=== PATIENT | male | born 1970 | race Caucasian/White ===

== ENCOUNTER 2018-05-26 09:11 | Emergency (ER) | payer MEDICAID, SELFPAY ==
[2018-05-26 09:12] VITALS: BP 147/110; PULSE 106; RESP 18; TEMP 36.4; O2SAT 97; BMI 21.4
--- NOTE | 2018-05-26 09:21 | RAD_ITS ---
STUDY: X-RAY CHEST REASON FOR EXAM: Male, 47 years old. Choked on food. Nausea and vomiting. TECHNIQUE: Single AP portable view of the chest. COMPARISON: None. FINDINGS: EKG electrodes are seen. Increased markings are seen in the medial aspect of the right upper lobe. This may represent possible aspiration. Radiographic follow-up is recommended. There is no demonstrated pleural abnormality. Normal size heart. Normal mediastinum and eliot. Normal visualized pulmonary arteries. Normal visualized aortic arch and descending thoracic aorta. Normal visualized thoracic spine. Normal visualized ribs, clavicles, and shoulders. There is no demonstrated abnormality of the visualized soft tissue structures of the upper abdomen. RAD/Chest 1 View (Portable) IMPRESSION: Increased markings in the right upper lobe as described. Aspiration should be ruled out. Radiographic follow-up is recommended until clearing. Electronically Signed: Domo Mccormick MD at 11:51 EDT Tel [phone], Service support ,
--- NOTE | 2018-05-26 09:23 | RAD_ITS ---
STUDY: X-RAY - SOFT TISSUE NECK REASON FOR EXAM: Male, 47 years old. Possible foreign body. TECHNIQUE: AP and lateral view(s) of the neck were obtained. COMPARISON: None. FINDINGS: Normal visualized nasopharynx, oropharynx, hypopharynx. There is thickening of the epiglottis. The airway is patent. Normal visualized subglottic tracheal air column. Normal prevertebral soft tissue structures. Normal visualized osseous structures. There is no demonstrated radiopaque foreign body. There are atherosclerotic calcifications of the carotid arteries. RAD/Neck for Soft Tissue IMPRESSION: Thickened epiglottis. No radiopaque foreign body is seen. Electronically Signed: Domo Mccormick MD at 11:49 EDT Tel [phone], Service support ,
[2018-05-26] MEDS: Ondansetron 4 MG/2 ML Vial IV (10:21)
[2018-05-26] MEDS: 0.9% Normal Saline 1,000 ML 1000 ML IV (10:22)
[2018-05-26 10:23] LABS: Absolute Lymphocyte Count 1.78 X10^3/ul (0.83-4.51); Absolute Neutrophil Count 3.6 X10^3/uL (2.0-7.7); Basophil# 0.13 X10^3/uL; Basophil% 1.9 % (0-1); Eosinophil# 0.53 X10^3/uL; Eosinophils% 7.9 % (0-5); Hematocrit 40.7 % (40-54); Lymphocyte # 1.78 X10^3/ul (4.0); Lymphocyte % 26.4 % (19-41); Mean Corp Hgb Conc 34.4 g/gl (32-36); Mean Corpuscular Hgb 33.2 pg (27.0-32.0); Mean Corpuscular Volume 96.4 fL (80-94); Mean Platelet Vol. 8.5 fl (6.2-12.0); Monocyte# 0.68 X10^3/uL; Monocyte% 10.1 % (0-10); Neutrophil # 3.61 X10^3/uL (2.7-7.7); Neutrophil % 53.7 % (47-70); Platelet Count 414 K/mm3 (150-450); RBC Distribution Width CV 12.1 % (11.6-14.6); RBC Distribution Width SD 41.7 fl (35.1-43.9); Red Blood Count 4.22 M/mm3 (4.6-6.2); White Blood Count 6.7 K/mm3 (4.4-11.0)
[2018-05-26 10:24] LABS: POSITIVE COUNT NO; POSITIVE DIFFERENTIAL NO; POSITIVE MORPHOLOGY NO
[2018-05-26] MEDS: Glucagon 1 MG/ML Syringe IV (10:24)
[2018-05-26 10:39] LABS: AST(SGOT) 18 U/L (15-37); Alanine Aminotransfer ALT/SGPT 22 U/L (16-61); Alkaline Phosphatase 79 U/L (45-117); Anion Gap 11 (5-15); BUN 9 mg/dL (7-18); BUN/Creat Ratio 9.7 RATIO (10-20); Calcium,Total 8.8 mg/dL (8.5-10.1); Chloride 109 mmol/L (98-107); Creatinine, Serum 0.93 mg/dL (0.70-1.30); EST Glomerular Filtration Rate 93 mL/min (>60); Est Glom Filt Rate - Afr Amer 113 mL/min (>60); Estimated Creatinine Clearance 92.65 ml/min; Globulin 4.1 g/dL (2.2-4.2); Glucose 89 mg/dL (74-106); Potassium 3.5 mmol/L (3.5-5.1); Protein, Total 8.1 g/dL (6.4-8.2); Sodium Level 142 mmol/L (136-145)
[2018-05-26 10:51] VITALS: BP 153/71; PULSE 79; RESP 20; O2SAT 100
[2018-05-26 11:28] VITALS: BP 149/99; PULSE 86; RESP 15; O2SAT 100
--- NOTE | 2018-05-26 12:08 | ED.VISSUMM ---
- ER Visit Summary Date of Service: 05/26/18 Chief Complaint: Choking on a burrito History of Present Illness: The patient is a 47 M who presents with trouble swallowing after stating he choked on a burrito. He was eating a burrito and suddenly had difficulty swallowing it. He began vomiting and thought he got most of it out. He continues to feel like there is burrito in his mid throat. He has associated discomfort, nausea and vomiting. Denies any difficulty breathing. Complains of difficulty swallowing his secretions. Denies this happening before. No medical history. Physical Examination: Vital signs: afebrile, hypertensive and mildly tachycardic, no hypoxia on room air General: well nourished, well developed, appears uncomfortable, drooling, bent over an emesis bag Skin: warm, dry, no rash, no pallor HEENT: normocephalic and atraumatic; PERRL, EOMI, moist mucous membranes Cardiovascular: Tachycardic rate and rhythm without murmurs, no peripheral edema, 2+ pulses all distal extremities Respiratory: No increased work of breathing, lungs are clear to auscultation bilaterally, no rales, rhonchi or wheezing, no stridor Abdominal: Abdomen is soft, nontender with normoactive bowel sounds, no guarding or rebound, no masses MSK: Moves all extremities, no deformities, normal strength Neuro: Awake and alert, oriented ?4. No facial droop, sensation and motor function intact and symmetric Test Results: Abnormal Lab Results 05/26/18 05/26/18 10:15 10:15 WBC 6.7 RBC 4.22 L Hgb 14.0 Hct 40.7 MCV 96.4 H MCH 33.2 H MCHC 34.4 RDW 12.1 RDW Differential 41.7 Plt Count 414 MPV 8.5 Immature Gran % (Auto) 0.000 Neut % (Auto) 53.7 Lymph % (Auto) 26.4 [place] % (Auto) 10.1 H Eos % (Auto) 7.9 H Baso % (Auto) 1.9 H Absolute Neuts (auto) 3.6 Absolute Lymphs (auto) 1.78 Total Counted Not Reportable Sodium 142 Potassium 3.5 Chloride 109 H Carbon Dioxide 22.0 Anion Gap 11 BUN 9 Creatinine 0.93 Estim Creat Clear Calc 92.65 Est GFR (MDRD) Af Amer 113 Est GFR (MDRD) Non-Af 93 BUN/Creatinine Ratio 9.7 L Glucose 89 Calcium 8.8 Total Bilirubin 0.40 AST 18 ALT 22 Alkaline Phosphatase 79 Total Protein 8.1 Albumin 4.0 Globulin 4.1 Albumin/Globulin Ratio 1.0 Clinical Impression(s) from Imaging Studies Chest X-Ray 05/26/18 09:21 IMPRESSION: Increased markings in the right upper lobe as described. Aspiration should be ruled out. Radiographic follow-up is recommended until clearing. Electronically Signed: Domo Mccormick MD at 11:51 EDT Tel [phone], Service support , Soft Tissue Neck X-Ray 05/26/18 09:23 IMPRESSION: Thickened epiglottis. No radiopaque foreign body is seen. Electronically Signed: Domo Mccormick MD at 11:49 EDT Tel [phone], Service support , Emergency Department Course and Treatment: Labs were performed anticipating patient might need endoscopic intervention for an impacted food bolus. He is currently having difficulty controlling his secretions. Patient was given IV glucagon and IV hydration. Labs showed no electrolyte derangements or leukocytosis. X-ray of the chest showed early right upper lobe infiltrate concerning for aspiration pneumonia. Soft tissue neck showed no obvious foreign body but showed an enlarged epiglottis, and given the violent nature of the patient's vomiting while in the emergency department, this may be an inflammatory reaction to the vomiting. Patient continued to feel like there was a food bolus in his throat. He was given a carbonated beverage to drink followed by heel strikes, in which he jumped up and down on his heels forcefully. He had immediate improvement in his symptoms and felt the food bolus go to his stomach. He had no further drooling or discomfort. He was able to drink without any difficulty. Patient was started on Augmentin for the concerning findings of the right upper lobe pneumonia. He was discharged home with the food bolus impaction resolved. Treatment Plan: [] Disposition: [] Impression: Esophageal food bolus impaction, resolved; right upper lobe pneumonia, suspected aspiration pneumonia This note was generated with Dragon dictation software. It may contain incorrect words, spelling, and punctuation that were not noted in review of the chart prior to signing ED Disposition - Plan for ED Patient: Disposition: Home or Assisted Living Chief Complaint: Foreign Body Instructions: ED Foreign Body Esophageal Rslv, ED Pneumonia Adult Prescriptions: Ondansetron [Zofran Odt] 4 mg PO Q8H PRN PRN #10 tab PRN Reason: Nausea Amox/Clavulanate Tablet [Augmentin Tablet] 875 mg PO Q12H #20 tab Referrals: Leighton Day MD [STAFF PHYSICIAN] - As Needed Bradly Huitron MD [NON-STAFF] - 1-2 Days if not improving Care Physician,No Primary [Primary Care Provider] - Additional Instructions: The food stuck in your throat resolved with treatment. If you have any further concern that it has not completely resolved or if it happens again, please return to the emergency department for another evaluation or follow-up with a GI physician on this paperwork. At that point you may need further imaging. Your chest x-ray was concerning for early pneumonia. Please take the antibiotic for the entire 10 days as prescribed. You may use ondansetron for nausea if you have any further issues with nausea. If you have any worsening of your condition or any new concerning symptoms, please return immediately to the emergency department for another evaluation.
[2018-05-26 12:12] VITALS: BP 140/98; PULSE 75; O2SAT 100
--- NOTE | 2018-05-26 12:41 | ED.DEP ---
ED Disposition - Plan for ED Patient: Disposition: Home or Assisted Living Chief Complaint: Foreign Body Instructions: ED Foreign Body Esophageal Rslv, ED Pneumonia Adult Prescriptions: Ondansetron [Zofran Odt] 4 mg PO Q8H PRN PRN #10 tab PRN Reason: Nausea Amox/Clavulanate Tablet [Augmentin Tablet] 875 mg PO Q12H #20 tab Referrals: Care Physician,No Primary [Primary Care Provider] - Leighton Day MD [STAFF PHYSICIAN] - As Needed Bradly Huitron MD [NON-STAFF] - 1-2 Days if not improving Additional Instructions: The food stuck in your throat resolved with treatment. If you have any further concern that it has not completely resolved or if it happens again, please return to the emergency department for another evaluation or follow-up with a GI physician on this paperwork. At that point you may need further imaging. Your chest x-ray was concerning for early pneumonia. Please take the antibiotic for the entire 10 days as prescribed. You may use ondansetron for nausea if you have any further issues with nausea. If you have any worsening of your condition or any new concerning symptoms, please return immediately to the emergency department for another evaluation.
[2018-05-26] MEDS: Amox/Clavulanate 875 MG Tablet PO (12:47)
[2018-05-26 12:48] VITALS: BP 109/87; PULSE 78; RESP 12; O2SAT 98
[2018-05-26 12:58] VITALS: BP 115/79; PULSE 82; RESP 18; O2SAT 98
== END 2018-05-26 12:59 | disposition home or self-care (01) ==
PROVIDERS: Emergency Provider Emergency Medicine
DX: T18.128A Food in esophagus causing other injury, initial encounter (principal); J18.1 Lobar pneumonia, unspecified organism; J05.10 Acute epiglottitis without obstruction; X58.XXXA Exposure to other specified factors, initial encounter; Y93.9 Activity, unspecified; Y92.9 Unspecified place or not applicable; Z72.0 Tobacco use
CPT/HCPCS: 70360; 71045; 80053; 85025; 96361; 96374; 96375; 99285; J7030; A4216; J1610; J2405

== ENCOUNTER 2021-12-29 15:28 | Emergency (ER) | payer MEDICAID, SELFPAY ==
[2021-12-29 15:29] VITALS: BP 158/114; PULSE 106; RESP 18; TEMP 36.4; O2SAT 95; BMI 23.6
--- NOTE | 2021-12-29 16:13 | EDS_ITS ---
HPI History of Present Illness Chief Complaint: Fatigue Informant: patient Onset/Context/Timing Onset: Days Context: Gradual Onset Narrative Narrative: Patient presents with generalized fatigue. He was diagnosed with Covid on December 13. Patient states his doctor gave him Decadron and Zithromax. He felt better on December 22 and went back to work but states the following day he felt weak and tired again. He has been feeling fatigued all week but came to the emergency room today. He does not know if he is been running a fever. He has very minimal cough. [facility] Medical History Acute bronchitis, unspecified Acute maxillary sinusitis, unspecified COVID-19 Home Medications NK 12/29/21 [History Last Taken Unknown] Allergy/AdvReac Type Severity Reaction Status Date / Time No Known Allergies Allergy Verified 12/29/21 15:29 Social History Smoking Status: Current every day smoker tobacco type: cigarettes ROS ROS ED Constitutional Constitutional ED: Denies chills or fever(s) Eyes Eyes: Denies blurry vision ENT ENT ED: Denies rhinorrhea or sore throat Cardiovascular Cardiovascular: Denies chest pain or palpitations Respiratory/Chest Respiratory/Chest: Reports cough, dyspnea and other Details: Rare cough Gastrointestinal Gastrointestinal: Denies nausea or vomiting Genitourinary Genitourinary ED: Denies dysuria Musculoskeletal Musculoskeletal: Reports myalgias Integumentary Denies rash Allergic/Immunologic Allergic/Immunologic ED: Denies urticaria EXAM Physical Exam Const Vital Signs: 12/29/21 15:29 12/29/21 16:04 12/29/21 17:28 Temperature 97.6 F L Temperature Source Temporal Pulse Rate 106 H 83 Respiratory Rate 18 20 H Respiratory Effort Normal Non-Labored Respiratory Pattern Normal Blood Pressure 158/114 H 149/86 H Blood Pressure Mean 128 107 Pulse Ox 95 98 Oxygen Delivery Method Room Air Room Air Positive well nourished and well developed General Appearance ED: well developed HEENT Reports moist mucous membranes Eyes PERRL and EOMs intact bilaterally Neck supple Chest Wall inspection of chest normal and palpation of chest normal Resp normal respiratory effort and clear to auscultation bilaterally Cardio regular rate and regular rhythm GI non-tender Palpation: soft Extremity normal to inspection Neuro oriented x3 Sensorium / Orientation: alert Psych mental status grossly normal Skin no rashes or lesions noted MDM MDM MDM Narrative Medical decision making narrative: Lab work and chest x-ray obtained. 500 cc IV fluid bolus given. Lab Data Attestation: I reviewed the patient's lab results. Labs: Laboratory Results - last 24 hr 12/29/21 12/29/21 16:27 16:27 WBC 9.9 RBC 4.40 L Hgb 15.4 Hct 42.7 MCV 97.0 H MCH 35.0 H MCHC 36.1 H RDW Std Deviation 44.6 H RDW Coeff of Delisa 12.4 Plt Count 355 MPV 8.8 Immature Gran % (Auto) 0.200 Neut % (Auto) 69.0 Lymph % (Auto) 15.3 L [place] % (Auto) 7.7 Eos % (Auto) 6.4 H Baso % (Auto) 1.4 H Absolute Neuts (auto) 6.8 Absolute Lymphs (auto) 1.51 Nucleated RBC % 0 Sodium 138 Potassium 4.1 Chloride 104 Carbon Dioxide 30.0 Anion Gap 4 L BUN 12 Creatinine 0.94 Estim Creat Clear Calc 94.02 Est GFR (MDRD) Af Amer 109 Est GFR (MDRD) Non-Af 90 BUN/Creatinine Ratio 12.7 Glucose 128 H Calcium 8.7 Total Bilirubin 0.30 Direct Bilirubin 0.09 AST 24 ALT 28 Alkaline Phosphatase 84 Total Protein 7.7 Albumin 3.6 Globulin 4.1 Radiography Chest X-Ray - ED: 1 View, Read by ED Physician and No Infiltrates Diagnostic Testing: Clinical Impression(s) from Imaging Studies Chest X-Ray 12/29/21 16:50 IMPRESSION: 1. No evidence of acute cardiopulmonary process Electronically Signed: Dudley Rendon MD at 17:24 EST , Treatment and Re-Evaluation Comments:: Lab work reviewed and unremarkable. Chest x-ray is clear. On repeat examination patient resting comfortably. I advised him I believe he does try to do too much too soon after his Covid illness. He will be written for 3 days off work this week to help him recover. He does not need steroids or antibiotics at this time. Discharge Plan Triage Chief Complaint: Fatigue ED Provider: Isis Hirsch Dx/Rx/DC Orders Clinical Impression: Viral syndrome, COVID-19 Instructions: ED Viral Syndrome (Adult) Prescriptions: No Action NK RF: 0 Stand Alone Forms: ED Work / School Excuse Primary Care Provider: Care Physician,No Primary Referrals: Joy Cuba MD [STAFF PHYSICIAN] - 1-2 Weeks Care Physician,No Primary [Primary Care Provider] - Disposition Disposition: Home, Self Care
[2021-12-29 16:47] LABS: Absolute Lymphocyte Count 1.51 X10^3/uL (0.83-4.51); Absolute Neutrophil Count 6.8 X10^3/uL (2.0-7.7); Basophil# 0.14 X10^3/uL; Basophil% 1.4 % (0-1); Eosinophil# 0.63 X10^3/uL; Eosinophils% 6.4 % (0-5); Hematocrit 42.7 % (40-54); Hemoglobin 15.4 g/dL (13.0-16.5); Lymphocyte # 1.51 X10^3/ul (0.83-4.51); Lymphocyte % 15.3 % (19-41); Mean Corp Hgb Conc 36.1 g/dL (32-36); Mean Platelet Vol. 8.8 fl (6.2-12.0); Monocyte# 0.76 X10^3/uL; Monocyte% 7.7 % (0-10); NRBC Flagged by Analyzer 0 % (0-5); Neutrophil # 6.81 X10^3/uL (2.7-7.7); Platelet Count 355 K/mm3 (150-450); RBC Distribution Width CV 12.4 % (11.6-14.6); RBC Distribution Width SD 44.6 fl (35.1-43.9); White Blood Count 9.9 K/mm3 (4.4-11.0)
--- NOTE | 2021-12-29 16:50 | RAD_ITS ---
INDICATION: sob EXAMINATION/TECHNIQUE: X-RAY - XR Chest 1 View COMPARISON: 12/25/2021 FINDINGS: LIFE-SUPPORT AND LINES: 1. None HEART AND VESSELS: The cardiac silhouette, pulmonary vasculature have normal appearance. No evidence of congestive failure. LUNGS AND PLEURAL SPACES: Lungs are clear. No focal infiltrate, consolidation or effusions. No evidence of pneumothorax. No pulmonary mass is noted. MEDIASTINUM AND HILAR REGIONS: No masses adenopathy noted. No areas of calcification. Visualized upper airway is normal in position. BONY ELEMENTS: No acute bony changes noted. RAD/Chest 1 View (Portable) IMPRESSION: 1. No evidence of acute cardiopulmonary process Electronically Signed: Dudley Rendon MD at 17:24 EST ,
[2021-12-29 17:02] LABS: AST(SGOT) 24 U/L (15-37); Alanine Aminotransfer ALT/SGPT 28 U/L (16-61); Albumin, Serum 3.6 g/dL (3.2-5.0); Alkaline Phosphatase 84 U/L (45-117); Anion Gap 4 (5-15); BUN 12 mg/dL (7-18); BUN/Creat Ratio 12.7 RATIO (10-20); Bilirubin, Direct 0.09 mg/dL (0.00-0.30); Calcium,Total 8.7 mg/dL (8.5-10.1); Chloride 104 mmol/L (98-107); Creatinine, Serum 0.94 mg/dL (0.70-1.30); EST Glomerular Filtration Rate 90 mL/min (>60); Est Glom Filt Rate - Afr Amer 109 mL/min (>60); Estimated Creatinine Clearance 94.02 ml/min; Globulin 4.1 g/dL (2.2-4.2); Glucose 128 mg/dL (74-106); Potassium 4.1 mmol/L (3.5-5.1); Protein, Total 7.7 g/dL (6.4-8.2); Sodium Level 138 mmol/L (136-145)
[2021-12-29 17:28] VITALS: BP 149/86; PULSE 83; RESP 20; O2SAT 98
== END 2021-12-29 17:53 | disposition home or self-care (01) ==
PROVIDERS: Emergency Provider Emergency Medicine; Visit Provider Emergency Medicine
DX: U07.1 COVID-19 (principal); B34.9 Viral infection, unspecified; F17.210 Nicotine dependence, cigarettes, uncomplicated
CPT/HCPCS: 71045; 80048; 80076; 85025; 96360; 99284; J7040

== ENCOUNTER 2022-02-04 13:27 | Outpatient (CLI) | payer MEDICAID, SELFPAY ==
[2022-02-04 14:54] LABS: Vitamin B12 646 pg/mL (211-911)
[2022-02-04 15:02] LABS: Thyroid Stim Hormone (TSH) 1.79 uIU/mL (0.358-3.74)
== END 2022-02-04 23:59 | disposition home or self-care (01) ==
LOC: LAB 13:29
PROVIDERS: PCP Nurse Practitioner Adult Health; Referring Provider Nurse Practitioner Adult Health; Visit Provider Nurse Practitioner Adult Health
DX: R53.83 Other fatigue (principal)
CPT/HCPCS: 36415; 82306; 82607; 84443

== ENCOUNTER → 2023-03-11 | Outpatient (CLI) | payer MEDICAID, SELFPAY ==
[2023-03-11 15:58] LABS: Hemoglobin A1c 5.1 % (3.8-5.6)
[2023-03-15 04:06] LABS: Vitamin B1, Thiamine 208.5 nmol/L (66.5-200.0)
== END | disposition home or self-care (01) ==
PROVIDERS: PCP Nurse Practitioner Family; Referring Provider Psychiatry & Neurology Neurology; Visit Provider Psychiatry & Neurology Neurology
DX: R73.9 Hyperglycemia, unspecified (principal); F10.20 Alcohol dependence, uncomplicated
CPT/HCPCS: 36415; 83036; 83735; 84425

== ENCOUNTER → 2023-03-25 | Outpatient (CLI) | payer MEDICAID, SELFPAY | END | disposition home or self-care (01) | LOC: PSN 08:30 | PROVIDERS: Referring Provider Psychiatry & Neurology Neurology; Visit Provider Psychiatry & Neurology Neurology | DX: G40.909 Epilepsy, unspecified, not intractable, without status epilepticus (principal); F10.20 Alcohol dependence, uncomplicated | CPT/HCPCS: 95819 ==

== ENCOUNTER → 2023-04-22 | Outpatient (CLI) | payer MEDICAID, SELFPAY ==
--- NOTE | 2023-04-22 17:59 | MRI_ITS ---
EXAM: MR HEAD WITHOUT AND WITH INTRAVENOUS CONTRAST CLINICAL INDICATION: Epilepsy; alcoholism TECHNIQUE: Multiplanar and multisequence MR images of the brain were obtained without and with intravenous contrast. CONTRAST: IV 13ml clariscan COMPARISON: No relevant prior studies available. FINDINGS: BRAIN AND EXTRA-AXIAL SPACES: Unremarkable. No intra- or extra-axial hemorrhage. No evidence of acute infarct. No intracranial mass or mass effect. There is preservation of the martinez/white matter interface. Posterior fossa structures are unremarkable. Ventricles are appropriate for age. No hydrocephalus. Basal cisterns are patent. SELLA: Unremarkable. Normal sella turcica, pituitary gland, infundibular stalk, optic chiasm and hypothalamus. AUDITORY SYSTEM: Unremarkable. The internal auditory canals are patent. BONES/JOINTS: Unremarkable. No discrete lytic or blastic abnormalities. SINUSES: Unremarkable as visualized. Clear. MASTOID AIR CELLS: Unremarkable as visualized. Clear. ORBITS: Unremarkable as visualized. Both globes, extraocular muscles, optic nerves and retrobulbar fat appear unremarkable. VASCULATURE: Unremarkable as visualized. Normal flow voids in the major intracranial circulation. MRI/Brain W/WO Contrast IMPRESSION: Negative MRI brain without and with intravenous contrast. Electronically Signed: Kal Lynch MD at 4:04 EDT ,
== END | disposition home or self-care (01) ==
LOC: MRI 17:55
PROVIDERS: Referring Provider Psychiatry & Neurology Neurology; Visit Provider Psychiatry & Neurology Neurology
DX: G40.909 Epilepsy, unspecified, not intractable, without status epilepticus (principal); F10.20 Alcohol dependence, uncomplicated
CPT/HCPCS: 70553; A9575

== ENCOUNTER → 2023-09-04 | Outpatient (CLI) | payer MEDICAID, SELFPAY ==
[2023-09-08 17:07] LABS: Lamotrigine (Lamictal) Level < 1.0 ug/mL (2.0-20.0)
== END | disposition home or self-care (01) ==
LOC: MTLAB 16:52
PROVIDERS: Referring Provider Psychiatry & Neurology Neurology; Visit Provider Psychiatry & Neurology Neurology
DX: G40.909 Epilepsy, unspecified, not intractable, without status epilepticus (principal)
CPT/HCPCS: 36415; 82140; 82542

== ENCOUNTER 2023-09-28 13:10 | Outpatient (RCR) | payer MEDICAID, SELFPAY ==
--- NOTE | 2023-09-28 13:55 | HP.PTEVAL ---
Patient's Visit Information Visit Information Visit Information: LOVE MEDINA is a 52 year old M referred to Physical Therapy by ALBERT Underwood with a diagnosis of LOW BACK PAIN ,LUMBAR STRAIN. Date of Evaluation: 09/28/23 Physical Therapist: Sohail Abarca, PT, Cert MDT, OCS Visit Plan Frequency: 2x /Week Duration: 4 Weeks Plan: PT INTERVTIONS MARK EX'S ,DLS ,POSTURAL EX'S ,MODALTIES AND LE FLEXABILITY Subjective Subjective: This 52 y/o male presents to physical therapy with lumbar pain. Patient has lumbar pain ~ 5 years without etiology pain . Although patient ahs h/o fall 5 years ago. Patient wants to strengthening back. Patient had x-rays and no medication. DR recommended PT. Location of pain symmetrical lumbar. Aggravating factors bending ,lifting , sitting ,job demands . Alleviating factors walking/standing. Denies paresthesia/tingling -. Bowel/bladder -. Coughing/sneezing -. Patient pain affects sleeping. Patient pain affects QOL and function. Patient pain affects ability to perform job demands. Patient goals to decrease pain. Patient states ETOH abuse. SOCIAL: single VOCATION: [place] [employer] Pain Bilateral Back: Pain Intensity (Out of 10): 4 Pain Intensity Range: 10 Objective Objective: POSTURE: mild forward posture shoulders NEURO: denies paresthesia/tingling ,reflexes L3-4 ,L4-5 ,L5-6 S1 1/3 SYMMTRIES: align GAIT: reciprocal pattern PALAPTION: TTP paraspinals LUMBAR ROM: flexion min ,extension mins loss ,side glides min loss MMT: quads/hams 4/5 ,hip flexion 4/5 ,ankle 5/5 FLEXABILITY: min hamstrings ,pirformis min Special Tests L/S Slump test left side: Negative L/S Slump test right side: Negative L/S Left Straight Leg Raise: Negative L/S Right Straight Leg Raise: Negative Lumbar Standing: Flexion - Mechanical Response: No effect Lumbar Standing: Flexion - Symptoms During Testing: No effect Lumbar Standing: Flexion - Symptoms After Testing: No effect Lumbar Standing: Extension - Mechanical Response: No effect Lumbar Standing: Extension - Symptoms During Testing: No effect Lumbar Standing: Extension - Symptoms After Testing: No effect Lumbar Standing: Right Side Glides - Mechanical Response: No effect Lumbar Standing: Right Side [place] - Symptoms During Testing: No effect Lumbar Standing: Right Side [place] - Symptoms After Testing: No effect Lumbar Standing: Left Side [place] - Mechanical Response: No effect Lumbar Standing: Left Side [place] - Symptoms During Testing: No effect Lumbar Standing: Left Side [place] - Symptoms After Testing: No effect Lumbar Lying: Flexion - Mechanical Response: No effect Lumbar Lying: Flexion - Symptoms During Testing: No effect Lumbar Lying: Flexion - Symptoms After Testing: No effect Lumbar Lying: Extension - Mechanical Response: No effect Lumbar Lying: Extension - Symptoms During Testing: Increases Lumbar Lying: Extension - Symptoms After Testing: No worse Balance/Special Test Scores Oswestry Low Back Score: 17 Goals Goal 1:: Patient to be I with HEP for lumbar Goal Time Frame: 4-6 Weeks Goal 2:: Patient to improve posture /body mechanics 80% of the time Goal Time Frame: 4-6 Weeks Goal 3:: Patient to demonstrate 50% improvement with less pain and improved function Goal Time Frame: 4-6 Weeks Goal 4:: Patient to improve back oswestry score by 5 points to improve QOL and function Goal Time Frame: 4-6 Weeks Goal 5:: Patient to improve back oswestry score by 5 points to improve function. Rehabilitation Potential Physical Therapy Diagnosis: This patient has lumbar pain possible derangement worse with positioning and motion testing affects ADLS and job demands thus benefit from skilled PT Rehabilitation Potential: Good Anticipated Interventions Patient/Client Instruction: Educate patient on: Condition and Plan of Care For the Purpose of:: To decrease pain, To increase ROM, To improve muscle performance and motor function, To improve ability to perform ADL's, To increase tolerance to activity/condition/position, To improve ability of physical actions for home/community/work/leisure, To improve health of tissue, To decrease soft tissue restriction, To increase flexibility/ROM and To reduce risk of recurrence Therapeutic Exercise to Include: Strength training, Body mechanics, Postural training, Flexibilty training, Dynamic Lumbar Stabilization and Mark Exercises For the Purpose of:: To decrease pain, To increase ROM, To improve muscle performance and motor function, To improve ability to perform ADL's, To increase tolerance to activity/condition/position, To improve ability of physical actions for home/community/work/leisure, To improve health of tissue, To decrease soft tissue restriction and To increase flexibility/ROM TENS: Yes IF ES: Yes Cryotherapy (ice pack, ice massage): Yes Thermo therapy (hot pack): Yes Ultrasound (thermal/non thermal): Yes For the Purpose of:: To decrease pain, To increase ROM, To improve nutrient delivery to tissue, To increase oxygenation perfusion, To improve health of tissue and To decrease soft tissue restriction Text: Thank you for the opportunity to evaluate your patient. For Medicare and Medicare HMO plans, please review the plan of care and approve it. It will need to be FAXED BACK to us at [phone] for Medicare purposes. For Medicare only, by signing this I certify the plan of care. Please let me know if there are questions or concerns regarding this plan of care. Physician Signature: Date:
--- NOTE | 2024-03-02 08:49 | HP.PT.NRP ---
Patient Information Patient Information: LOVE MEDINA was seen in my office for initial evaluation on 09/28/23. The following Plan of Care was established for this patient: POC Established Initial Frequency: 2x /Week Initial Duration: 4 Weeks Anticipated Interventions Patient/Client Instruction: Educate patient on: Condition and Plan of Care For the Purpose of:: To decrease pain, To increase ROM, To improve muscle performance and motor function, To improve ability to perform ADL's, To increase tolerance to activity/condition/position, To improve ability of physical actions for home/community/work/leisure, To improve health of tissue, To decrease soft tissue restriction, To increase flexibility/ROM and To reduce risk of recurrence Therapeutic Exercise to Include: Strength training, Body mechanics, Postural training, Flexibilty training, Dynamic Lumbar Stabilization and Howie Exercises For the Purpose of:: To decrease pain, To increase ROM, To improve muscle performance and motor function, To improve ability to perform ADL's, To increase tolerance to activity/condition/position, To improve ability of physical actions for home/community/work/leisure, To improve health of tissue, To decrease soft tissue restriction and To increase flexibility/ROM TENS: Yes IF ES: Yes Cryotherapy (ice pack, ice massage): Yes Thermo therapy (hot pack): Yes Ultrasound (thermal/non thermal): Yes For the Purpose of:: To decrease pain, To increase ROM, To improve nutrient delivery to tissue, To increase oxygenation perfusion, To improve health of tissue and To decrease soft tissue restriction Last Seen Last Seen: This patient was last seen in our office . Pertinent comments regarding their Physical therapy will appear below: Patient seen for PT EVALUATION and HEP At this point I will be discontinuing this patient from physical therapy. I would be happy to see this patient again in the future if found appropriate by the physician. Thank you! Sohail Abarca, PT, Cert MDT, OCS Balance/Gait/Functional tests Balance/Special Test Scores Oswestry Low Back Score: 17
== END 2023-09-28 19:00 | disposition home or self-care (01) ==
LOC: PT 13:10
PROVIDERS: Referring Provider Nurse Practitioner Family; Visit Provider Nurse Practitioner Family
DX: M54.50 Low back pain, unspecified (principal); S39.012D Strain of muscle, fascia and tendon of lower back, subsequent encounter
CPT/HCPCS: 97110; 97162

== ENCOUNTER 2023-10-27 14:12 | Emergency (ER) | payer MEDICAID, SELFPAY ==
[2023-10-27 14:13] VITALS: BP 142/80; PULSE 106; RESP 23; TEMP 37.1; O2SAT 95
[2023-10-27 14:14] VITALS: BP 136/77; PULSE 101; RESP 23; TEMP 36.9; O2SAT 96; BMI 21.2
--- NOTE | 2023-10-27 14:35 | EDS_ITS ---
HPI History of Present Illness Chief Complaint: Seizure Informant: patient Narrative Narrative: Brought in by EMS from work with poor recurrent seizure lasting reported 8 minutes. 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 He has had seizures since age of 14. He is followed by Dr. Alonso. The last seizure he states a month ago he did not come to the emergency department. He is on carbamazepine 2 at milligrams twice daily however states he only takes it once a day stating if he takes it twice a day he would have seizures. Rhinorrhea for 2 days. No fevers or cough. No vomiting or diarrhea. No urinary symptoms. He does admit to drinking a pint of alcohol a day after work. Does not wake up with any tremors. Denies any alcohol withdrawal seizure history. He is currently feeling back to his baseline, stating prodromal symptoms typically with dizziness however did not feel symptoms today. Blood glucose 142 per EMS. Prior similar symptoms: Yes PFSH PFSH Medical History Acute bronchitis, unspecified Acute maxillary sinusitis, unspecified COVID-19 Home Medications carbamazepine 200 mg tablet 200 mg PO DAILY 10/27/23 [History Last Taken 10/26/23] Allergy/AdvReac Type Severity Reaction Status Date / Time No Known Allergies Allergy Verified 09/21/23 12:09 Family History Brother Epilepsy Sister Epilepsy Surgical History No history of previous surgery Social History Smoking Status: Current every day smoker tobacco type: cigarettes second hand exposure: No details: daily- wiskey substance use type: marijuana and methamphetamine what type of physical activity do you participate in: weight training frequency: 3-4 times per week seatbelt use: always ROS ROS ED Constitutional Constitutional ED: Denies chills, fever(s) or sweats Eyes Eyes: Denies change in vision ENT ENT ED: Reports rhinorrhea; Denies dysphagia or sore throat Cardiovascular Cardiovascular: Denies chest pain, leg edema, palpitations or racing heartbeat Respiratory/Chest Respiratory/Chest: Denies cough, dyspnea or dyspnea on exertion Gastrointestinal Gastrointestinal: Denies abdominal pain, diarrhea, nausea or vomiting Genitourinary Genitourinary ED: Denies dysuria, hematuria or urinary frequency Musculoskeletal Musculoskeletal: Denies back pain, extremity pain or neck pain Integumentary Denies rash or wounds Neurologic Neurologic: Reports other Details: Seizure ; Denies headache(s), paresthesias or weakness EXAM Physical Exam Const Vital Signs: 10/27/23 14:13 10/27/23 14:14 10/27/23 16:15 Temperature 98.7 F 98.4 F Temperature Source Oral Oral Pulse Rate 106 H 101 H 83 Respiratory Rate 23 H 23 H 22 H Blood Pressure 142/80 H 136/77 H 116/76 Blood Pressure Mean 100 96 89 Pulse Ox 95 96 99 Oxygen Delivery Method Room Air Room Air Room Air Positive well nourished and well developed General Appearance ED: well developed and NAD HEENT Reports moist mucous membranes HEENT Narrative: No tongue abrasion or lacerations. normocephalic and atraumatic Eyes PERRL, EOMs intact bilaterally and conjunctivae normal General Eye ED: Yes normal appearance of both eyes Neck no lymphadenopathy and supple General: Negative for tenderness Chest Wall Chest: Negative for tenderness Resp normal respiratory effort and normal air movement Effort and Inspection: symmetric chest movement; Negative for respiratory distress Cardio regular rate, regular rhythm and no murmurs Peripheral Pulses: pulses 2+ throughout GI normal to inspection, nondistended, normoactive bowel sounds and non-tender Palpation: Negative for guarding or rebound tenderness present Back/Spine no CVA tenderness and no thoracic nor lumbar tenderness Extremity normal to inspection General Extremety ED: Negative for edema or tenderness General Extremity: Negative for edema Neuro oriented x3, CN's II-XII intact bilaterally and no sensory deficits noted Sensorium / Orientation: awake and alert Skin no rashes or lesions noted and no wounds MDM MDM MDM Narrative Medical decision making narrative: Interventions / MDM: Differential diagnosis: Breakthrough seizure, medication noncompliance Diagnosis considered but do not suspect: Alcohol withdrawal seizure however denies any withdrawal symptoms My EKG interpretation: N/A Imaging independently reviewed and interpreted by myself: N/A External documents reviewed: N/A Test considered but not ordered:N/A ED course: Patient reported witnessed seizure history of seizures. History of taking his Tegretol once a day instead of twice a day. Back to baseline. Labs are drawn stable his Tegretol level 0.8 subtherapeutic. Urine with only 25 leukocytes denies urinary symptoms. He is dosed for his Tegretol dose in the ED. discussed taking his medications appropriately. Last seen his neurologist in June is where his medication was changed to Tegretol. He is discharged with outpatient follow-up with his neurologist. All questions were answered. Re-evaluation: stable Disposition discussed with patient/family/significant other: Patient Case discussed with consulting clinician: N/A This note was generated with [employer] dictation software. It may contain incorrect words, spelling, and punctuation that were not noted in checking the note before signing. Lab Data Attestation: I reviewed the patient's lab results. Labs: Laboratory Results - last 24 hr 10/27/23 10/27/23 14:00 15:13 WBC 10.0 RBC 4.45 L Hgb 15.1 Hct 46.1 MCV 103.6 H MCH 33.9 H MCHC 32.8 RDW Std Deviation 48.5 H RDW Coeff of Delisa 12.6 Plt Count 454 H MPV 8.6 Immature Gran % (Auto) 0.700 Neut % (Auto) 52.4 Lymph % (Auto) 31.9 [place] % (Auto) 9.1 Eos % (Auto) 3.9 Baso % (Auto) 2.0 H Absolute Neuts (auto) 5.3 Absolute Lymphs (auto) 3.20 Nucleated RBC % 0 Sodium 139 Potassium 3.5 Chloride 103 Carbon Dioxide 14.0 L Anion Gap 22 H BUN 15 Creatinine 1.35 H Estim Creat Clear Calc 59.88 Est GFR (MDRD) Af Amer 71 Est GFR (MDRD) Non-Af 59 L BUN/Creatinine Ratio 11.1 Glucose 135 H Calcium 9.5 Urine Color Yellow Urine Clarity Clear Urine pH 5.0 Ur Specific [place] 1.025 Urine Protein 100 H Urine Glucose (UA) Normal Urine Ketones 5 H Urine Occult Blood 10 H Urine Nitrite Negative Urine Bilirubin Negative Urine Urobilinogen Normal Ur Leukocyte Esterase 25 H Urine RBC 0-5 SEEN Urine WBC 0-5 SEEN Ur Squamous Epith Cells 0-5 SEEN Other Crystals Urine Bacteria 0 SEEN Urine Mucus 1+ Carbamazepine 0.8 L Discharge Plan Triage Chief Complaint: Seizure ED Provider: Jamey Lizarraga Dx/Rx/DC Orders Clinical Impression: Breakthrough seizure, Alcoholism, History of epilepsy, Noncompliance Instructions: ED Seizure, Recurrent (Adult) Prescriptions: No Action carbamazepine 200 mg tablet 200 mg PO DAILY Patient Comments: Pt states he only takes it once a day. Has been taking it once a day for 3 months [facility]: Alfred Sewell MD [Non-Staff -Ordering Privileges] - 1 Week [facility] [Primary Care Provider] - Activity Restrictions/Additional Instructions: Your Tegretol level 0.8. You need to take your medications twice a day as prescribed. You understand no driving, operating heavy machinery, swimming or bathing alone, or climbing heights. Follow-up with Dr. Sewell. Disposition Disposition: Home, Self Care Discharge Date/Time: 10/27/23 16:29
[2023-10-27 14:41] LABS: Absolute Neutrophil Count 5.3 X10^3/uL (2.0-7.7); Eosinophil# 0.39 X10^3/uL; Eosinophils% 3.9 % (0-5); Hematocrit 46.1 % (40-54); Hemoglobin 15.1 g/dL (13.0-16.5); Lymphocyte % 31.9 % (19-41); Mean Corp Hgb Conc 32.8 g/dL (32-36); Mean Corpuscular Hgb 33.9 pg (27.0-32.0); Mean Corpuscular Volume 103.6 fL (80-94); Mean Platelet Vol. 8.6 fl (6.2-12.0); Monocyte# 0.91 X10^3/uL; Monocyte% 9.1 % (0-10); NRBC Flagged by Analyzer 0 % (0-5); Neutrophil # 5.26 X10^3/uL (2.7-7.7); Neutrophil % 52.4 % (47-70); Platelet Count 454 K/mm3 (150-450); RBC Distribution Width CV 12.6 % (11.6-14.6); RBC Distribution Width SD 48.5 fl (35.1-43.9); Red Blood Count 4.45 M/mm3 (4.6-6.2)
[2023-10-27 14:57] LABS: Anion Gap 22 (5-15); BUN 15 mg/dL (7-18); BUN/Creat Ratio 11.1 RATIO (10-20); Calcium,Total 9.5 mg/dL (8.5-10.1); Chloride 103 mmol/L (98-107); Creatinine, Serum 1.35 mg/dL (0.70-1.30); EST Glomerular Filtration Rate 59 mL/min (>60); Est Glom Filt Rate - Afr Amer 71 mL/min (>60); Estimated Creatinine Clearance 59.88 ml/min; Glucose 135 mg/dL (74-106); Potassium 3.5 mmol/L (3.5-5.1); Sodium Level 139 mmol/L (136-145)
[2023-10-27 15:00] LABS: Carbamazepine (Tegretol) 0.8 ug/mL (4.0-12.0)
[2023-10-27] MEDS: 0.9% Normal Saline (1000mL) 1,000 ML 999 ML IV (15:11)
[2023-10-27 15:17] LABS: Bacteria 0 SEEN /hpf (None Seen)
[2023-10-27 15:19] LABS: Color, Urine Yellow (Yellow); Glucose, Dipstick Normal (Normal); Ketone-Dipstick 5 mg/dl (Negative); Leukocyte Esterase-Dipstick 25 /ul (Negative); Nitrite-Dipstick Negative (Negative); Occult Blood-Urine 10 /ul (Negative); Protein-Dipstick 100 mg/dl (Negative); Specific Gravity, Urine 1.025 (1.002-1.030); Urine Bilirubin Dipstick Negative (Negative); Urine Clarity Clear (Clear); Urine Urobilinogen Normal (Normal)
[2023-10-27 15:25] LABS: Mucous, Urine 1+ /hpf (<or=2+); Red Blood Cells-Urine 0-5 SEEN /hpf (0-5); Squamous Epithelial Cells - UA 0-5 SEEN /hpf (0-5); White Blood Cells 0-5 SEEN /hpf (0-5)
[2023-10-27 16:15] VITALS: BP 116/76; PULSE 83; RESP 22; O2SAT 99
[2023-10-27] MEDS: carBAMazepine 200 MG Tablet PO (16:26)
== END 2023-10-27 16:29 | disposition home or self-care (01) ==
PROVIDERS: Emergency Provider Emergency Medicine; Visit Provider Emergency Medicine
DX: G40.89 Other seizures (principal); F10.20 Alcohol dependence, uncomplicated; Z79.899 Other long term (current) drug therapy; F17.210 Nicotine dependence, cigarettes, uncomplicated; Z91.148 Patient's other noncompliance with medication regimen for other reason; Z86.69 Personal history of other diseases of the nervous system and sense organs
CPT/HCPCS: 80048; 80156; 81001; 85025; 96360; 99283; J7030; A4216

== ENCOUNTER → 2023-12-01 | Outpatient (CLI) | payer MEDICAID, SELFPAY ==
--- OUTSIDE RECORDS SUMMARY | 2023-12-01 13:04 | XMS RPT_ITS | CCD ---
Author Name Unknown Address [address] [place] [address] Organization [facility] Care Team Providers Care Warehouser Name Role Phone Perezgenevieve LIVINGSTON, Ligia E Unavailable Perez YARA, Ligia E Primary Care Provider Perez YARA, Ligia E Unavailable Perez YARA, Ligia E Primary Care Provider Jourdan Pham MD Unavailable Perez Ligia LIVINGSTON Unavailable Perez YARA, Ligia E Primary Care Provider Jourdan Pham MD(Historical) Unavailable Jena Jourdan Petty MD(Historical) Unavailable Jena vailable Bolivar NUNEZ, Felicia Primary Care Provider LIGIA PEREZ Primary Care Unavailable JUSTA PINO Referring Unavailable FELICIA LUTZ Primary Care Unavailable FELICIA LUTZ Primary Care Unavailable NESS OCHOA Referring Unavailable LIGIA PEREZ Primary Care Unavailable LIGIA PEREZ Primary Care Unavailable Medications Completed/Discontinued Medications Medication Drug Class(es) Dates Sig (Normalized) Sig (Original) [id number] 200 actuat albuterol 0.09 mg/actuat metered dose inhaler (2 sources) beta2-Adrenergic Agonist Start: 10-30-2022 take 2 puff(s) by inhalation every four to six hours as needed for cough albuterol HFA (PROVENTIL HFA, VENTOLIN HFA) 90 mcg/actuation inhaler Inhale 2 puffs every 4-6 hours as needed for shortness of breath/cough 0 10/30/2022 Active Problems Problem Classification Problem Date Documented Da te Episodic/Chronic Other injuries and conditions due to external causes (2 sources) Unspecified injury of lower back, initial encounter; Translations: [Other injury of other sites of trunk] Onset: 10-05-2023 10-05-2023 Episodic Other lower respiratory disease (1 source) Rib pain; Translations: [Pleurodynia] 08-21-2023 Episodic Other lower respiratory disease (1 source) Pleurodynia; Translations: [Rib pain on right side] Onset: 08-21-2023 Episodic Other nervous system disorders (1 source) Abnormal involuntary movement; Translations: [Unspecified abnormal involuntary movements] Episodic Results Test Name Value Interpretation Reference Range Facil ity Vital Signs Date Time Vital Sign Value Performing Clinician Oz buchanan 10-05-2023 12:22-0500 Body temperature 97 [degF] Justa Athy PA-C Work Phone: [facility] 10-05-2023 12:22-0500 Body weight 62.6 kg Justa Athy PA-C Work Phone: [facility] 10-05-2023 12:22-0500 Diastolic blood pressure 84 mm[Hg] Justa Athy PA-C Work Phone: [facility] 10-05-2023 12:22-0500 Heart rate 88 /min Justa Athy PA-C Work Phone: [facility] 10-05-2023 12:22-0500 Respiratory rate 16 /min Justa Athy PA-C Work Phone: [facility] 10-05-2023 12:22-0500 SaO2% (BldA) [Mass fraction] 99 % Justa Athy PA-C Work Phone: [facility] 10-05-2023 12:22-0500 Systolic blood pressure 142 mm[Hg] Justa Athy PA-C Work Phone: [facility] 08-21-2023 14:43-0400 Body temperature 98.29 [degF] Ness Ochoa APRN.CUSTOM HARVESTER Work Phone: [facility] 08-21-2023 14:43-0400 Body weight 62.05 kg Ness Pendlebury DIRECTOR BUSINESS DEVELOPMENT.CUSTOM HARVESTER Work Phone: [facility] 08-21-2023 14:43-0400 Diastolic blood pressure 76 mm[Hg] Ness Pendlebury DIRECTOR BUSINESS DEVELOPMENT.CUSTOM HARVESTER Work Phone: [facility] 08-21-2023 14:43-0400 Heart rate 82 /min Nesslaura Justinysabel DIRECTOR BUSINESS DEVELOPMENT.CUSTOM HARVESTER Work Phone: [facility] 08-21-2023 14:43-0400 Respiratory rate 18 /min [facility] BUSINESS DEVELOPMENT.CUSTOM HARVESTER Work Phone: [facility] 08-21-2023 14:43-0400 SaO2% (BldA) [Mass fraction] 98 % Ness Justinleabhi DIRECTOR BUSINESS DEVELOPMENT.CUSTOM HARVESTER Work Phone: [facility] 08-21-2023 14:43-0400 Systolic blood pressure 114 mm[Hg] [facility] DIRECTOR BUSINESS DEVELOPMENT.CUSTOM HARVESTER Work Phone: [facility] Encounters Encounter Date Encounter Type Care Provider Facility Start: 10-05-2023 End: 10-05-2023 ambulatory [facility] Facility:[facility] Start: 10-05-2023 End: 10-05-2023 Patient encounter procedure Justa Pino PA-C Work Phone: [facility] Plan of Treatment Date Care Activity Detail Author Start: 07-20-2031 Urine microalbumin profile [facility] Start: 09-15-2026 Diabetes Screening Diabetes Screening [facility] Start: 07-17-2023 Covid-19 Vaccine ( season) Covid-19 Vaccine ( season) [facility] Start: 07-17-2023 Influenza vaccination Influenza Vaccine (#1) [facility] Start: 11-16-2022 Depression Assessment Depression Assessment [facility] Start: 07-17-2022 Influenza vaccination [facility] Start: 11-16-2021 DEPRESSION ASSESSMENT DEPRESSION ASSESSMENT [facility] Start: 2021 SHINGRIX VACCINE (1 of 2) SHINGRIX VACCINE (1 of 2) [facility] Start: 10-05-2021 Covid-19 Vaccine (3 - Pfizer series) Covid-19 Vaccine (3 - Pfizer series) [facility] Start: 08-10-2021 COVID-19 VACCINE (2 - Pfizer series) COVID-19 VACCINE (2 - Pfizer series) [facility] Start: 2016 COLOGUARD (FIT-DNA) COLOGUARD (FIT-DNA) [facility] Start: 2016 Colonoscopy COLONOSCOPY [facility] Start: 2016 COLORECTAL CANCER SCREENING COLORECTAL CANCER SCREENING [facility] Start: [address] COLONOGRAPHY [facility] Start: 2016 DIABETES SCREEN DIABETES SCREEN [facility] Start: 2016 Diabetes Screening Diabetes Screening [facility] Start: 2016 FECAL OCCULT BLOOD FECAL OCCULT BLOOD [facility] Start: 2016 SIGMOIDOSCOPY SIGMOIDOSCOPY [facility] Start: 2006 Lipid 1996 panel - Serum or Plasma Lipid Screening [facility] Start: 2006 LIPID SCREEN LIPID SCREEN [facility] Start: 1989 HEPATITIS C SCREENING HEPATITIS C SCREENING [facility] Start: 1989 HIV SCREENING HIV SCREENING [facility] Start: 1983 Adult depression screening assessment DEPRESSION SCREENING [facility] Start: 1977 PNEUMOCOCCAL (1 - PCV) PNEUMOCOCCAL (1 - PCV) [facility] Start: 1977 Pneumococcal vaccination Pneumococcal Vaccine (1 - PCV) [facility] Start: 1971 HEPATITIS B (1 of 3 - 3-dose series) HEPATITIS B (1 of 3 - 3-dose series) [facility] Start: 1971 Hepatitis B Vaccine (1 of 3 - 3-dose series) Hepatitis B Vaccine (1 of 3 - 3-dose series) [facility] End: 09-19-2023 EPIL EEG LONG EPIL EEG LONG NEUROLOGY Routine Abnormal involuntary movement 1 Occurrences starting 09/19/2022 until 09/19/2023 [facility] Work Phone: Immunizations Immunization Date Immunization Notes Care Provider Fa cility 07-20-2021 tetanus toxoid, redu sander diphtheria toxoid, and acellular pertussis vaccine, adsorbed Diptiad Sebastian BRIGHT Work Phone: [facility] Payers Date Payer Category Payer Medicaid [id number] 2022 Medicaid [id number] 2017 Medicaid [employer] [facility] [place] [employer] [id number] 2017-Present [phone] [address] [place] [address] Medicaid [id number] 2017 Medicaid [id number] Social History Date Type Detail Facility Start: 03-24-2017 End: 01-09-2023 Tobacco smoking status NHIS Smokes tobacco daily [facility] Work Phone: Start: 03-24-2017 End: 01-09-2023 Tobacco use and exposure Smokeless tobacco non-user [facility] Work Phone: Start: 1970 Sex Assigned At Not on file [facility] Start: 08-21-2023 Alcohol intake Current drinke r of alcohol (finding) [facility] Start: 11-28-2020 End: 08-21-2023 History of Social function [facility] Start: 11-28-2020 End: 08-21-2023 Tobacco use panel [facility] National Score (1-100), lower number is lower risk Not on file [facility] Clinical Notes 02-18-2021 to 10-05-2023 Justa Pino PA-C - 10/05/2023 2:05 PM Ness Cruz, ANJALI.CUSTOM HARVESTER - 08/21/2023 2:59 PM Tianna Avila APRN.CUSTOM HARVESTER - 09/19/2022 1:47 PM EDT Note Date & Type Note Facility 10-05-2023 Note HNO ID: [id number] Author: Justa Pino PA-C Service: ? Author Type: Physician Gold Buyer Type: Progress Notes Filed: 10/05/2023 2:10 PM Note Text: This note was created using NoteWriter. Subjective Devendra Medina is a 52 year old male. HPI Patient presents with the chief complaint of mid to low back pain for 4 days. He states he slipped in the rain and fell down 4 steps, Landing on his back. He has had back issues previously. He denies any pain going down his legs. No abdominal pain. He had tried Tylenol today without relief. He denies loss of bowel or bladder control or saddle anesthesia. Pain is worsened when he gets up from sitting and with twisting and bending. Review of Systems Constitutional: Negative. HENT: Negative. Eyes: Negative. Respiratory: Negative. Cardiovascular: Negative. Gastrointestinal: Negative. Genitourinary: Negative. Musculoskeletal: Positive for back pain. All other systems reviewed and are negative. PAST MEDICAL HISTORY Diagnosis Date Alcoholism (HCC) Current Outpatient Medications Medication Sig Dispense Refill albuterol HFA (PROVENTIL HFA, VENTOLIN HFA) 90 mcg/actuation inhaler Inhale 2 puffs every 4-6 hours as needed for shortness of breath/cough thiamine (VITAMIN B1) 100 mg tablet Take 100 mg by mouth once daily. carBAMazepine (TEGRETOL) 200 mg tablet Take 1 tablet by mouth every 12 hours. meloxicam (MOBIC) 7.5 mg tablet Take 1 tablet by mouth once daily for 7 days. With food. 7 tablet 0 lidocaine (LIDODERM) 5 % Apply 1 Patch as directed every 24 hours for 5 days. Remove old patch prior to placing new patch. Location: back 5 Patch 0 No current facility-administered medications for this visit. PAST SURGICAL HISTORY Procedure Laterality Date NONE No family history on file. Social History Tobacco Use Smoking status: Every Day Smokeless tobacco: Never Substance Use Topics Alcohol use: Yes Drug use: Never Objective BP 142/84 Pulse 88 Temp 36.1 ?C (97 ?F) Resp 16 Wt 62.6 kg (138 lb) SpO2 99% BMI 20.38 kg/m? Physical Exam Vitals reviewed. Constitutional: Appearance: Normal appearance. HENT: Head: Normocephalic and atraumatic. Cardiovascular: Rate and Rhythm: Normal rate and regular rhythm. Heart sounds: Normal heart sounds. Pulmonary: Effort: Pulmonary effort is normal. Breath sounds: Normal breath sounds. Musculoskeletal: Arms: Cervical back: Neck supple. Comments: Patient has an abrasion in the left paraspinal musculature of the lumbar back. Some tenderness here. Minimal midline tenderness of the lumbar back. Increased pain in the thoracic back with bending and twisting. Normal strength and sensation in lower and upper extremities. DTRs intact and symmetrical bilaterally. Able to ambulate. Skin: General: Skin is warm and dry. Neurological: Mental Status: He is alert. Assessment and Plan ASSESSMENT/PLAN: 1. Injury of back, initial encounter - ICD9: 959.19, ICD10: S39.92XA X-rays show previous compression fractures, no acute changes however. We will treat with meloxicam and Lidoderm patches. I did avoid muscle relaxer due to history of alcohol abuse and addition of muscle relaxers. Follow-up with PCP if not improving over the next week. - XR LUMBAR GENERAL 3V AP/LAT/L5-S1 - XR THORACIC GENERAL 3V AP/LAT/SWIMMERS Justa Pino PA-C [facility] 10-05-2023 Note HNO ID: [id number] Author: Urmila Mullins RT(R) Service: Radiology Author Type: Technologist Type: Progress Notes Filed: 10/05/2023 12:58 PM Note Text: Radiology Service Progress Note PATIENT NAME: Devendra Medina DATE OF SERVICE: October 05, 2023 TIME: 12:38 PM PATIENT IDENTITY VERIFICATION COMPLETED USING TWO (2) IDENTIFIERS: Name and Date of confirmed by patient verbally. FALL SCREENING: Has the patient had 2 falls in the last year or 1 fall with injury or currently using an Ambulatory Assistive Device (Walker, Cane, Wheelchair, Crutches, etc.)? No PATIENT GENDER DATA: Male PATIENT RELEVANT IMPLANT DATA REVIEWED: Not Applicable RADIOLOGY DEPARTMENT: General X-ray: Exam(s) Completed: Spine X-Ray(s): Thoracic and Lumbar AP / LAT / L5-S1 PERIPHERAL IV DATA: Not applicable SIGNED BY: RT Paul(R) October 05, 2023 12:38 PM [facility] 10-05-2023 History of Presen t illness Narrative Images from the original note were not included. This note was created using NoteWriter. Subjective Devendra Medina is a 52 year old male. HPI Patient presents with the chief complaint of mid to low back pain for 4 days. He states he slipped in the rain and fell down 4 steps, Landing on his back. He has had back issues previously. He denies any pain going down his legs. No abdominal pain. He had tried Tylenol today without relief. He denies loss of bowel or bladder control or saddle anesthesia. Pain is worsened when he gets up from sitting and with twisting and bending. Review of Systems Constitutional: Negative. HENT: Negative. Eyes: Negative. Respiratory: Negative. Cardiovascular: Negative. Gastrointestinal: Negative. Genitourinary: Negative. Musculoskeletal: Positive for back pain. All other systems reviewed and are negative. PAST MEDICAL HISTORY Diagnosis Date Alcoholism (HCC) Current Outpatient Medications Medication Sig Dispense Refill albuterol HFA (PROVENTIL HFA, VENTOLIN HFA) 90 mcg/actuation inhaler Inhale 2 puffs every 4-6 hours as needed for shortness of breath/cough thiamine (VITAMIN B1) 100 mg tablet Take 100 mg by mouth once daily. carBAMazepine (TEGRETOL) 200 mg tablet Take 1 tablet by mouth every 12 hours. meloxicam (MOBIC) 7.5 mg tablet Take 1 tablet by mouth once daily for 7 days. With food. 7 tablet 0 lidocaine (LIDODERM) 5 % Apply 1 Patch as directed every 24 hours for 5 days. Remove old patch prior to placing new patch. Location: back 5 Patch 0 No current facility-administered medications for this visit. PAST SURGICAL HISTORY Procedure Laterality Date NONE No family history on file. Social History Tobacco Use Smoking status: Every Day Smokeless tobacco: Never Substance Use Topics Alcohol use: Yes Drug use: Never Objective BP 142/84 Pulse 88 Temp 36.1 C (97 F) Resp 16 Wt 62.6 kg (138 lb) SpO2 99% BMI 20.38 kg/m Physical Exam Vitals reviewed. Constitutional: Appearance: Normal appearance. HENT: Head: Normocephalic and atraumatic. Cardiovascular: Rate and Rhythm: Normal rate and regular rhythm. Heart sounds: Normal heart sounds. Pulmonary: Effort: Pulmonary effort is normal. Breath sounds: Normal breath sounds. Musculoskeletal: Arms: Cervical back: Neck supple. Comments: Patient has an abrasion in the left paraspinal musculature of the lumbar back. Some tenderness here. Minimal midline tenderness of the lumbar back. Increased pain in the thoracic back with bending and twisting. Normal strength and sensation in lower and upper extremities. DTRs intact and symmetrical bilaterally. Able to ambulate. Skin: General: Skin is warm and dry. Neurological: Mental Status: He is alert. Assessment and Plan ASSESSMENT/PLAN: 1. Injury of back, initial encounter - ICD9: 959.19, ICD10: S39.92XA X-rays show previous compression fractures, no acute changes however. We will treat with meloxicam and Lidoderm patches. I did avoid muscle relaxer due to history of alcohol abuse and addition of muscle relaxers. Follow-up with PCP if not improving over the next week. - XR LUMBAR GENERAL 3V AP/LAT/L5-S1 - XR THORACIC GENERAL 3V AP/LAT/SWIMMERS Justa Pino PA-C documented in this encounter [facility] 08-21-2023 Note HNO ID: [id number] Author: Codi Rolon RT(R) Service: ? Author Type: Tafe Teacher Type: Progress Notes Filed: 08/21/2023 3:26 PM Note Text: Radiology Service Progress Note PATIENT NAME: Devendra Medina DATE OF SERVICE: August 21, 2023 TIME: 3:09 PM PATIENT IDENTITY VERIFICATION COMPLETED USING TWO (2) IDENTIFIERS: Name and Date of confirmed by patient verbally. FALL SCREENING: Has the patient had 2 falls in the last year or 1 fall with injury or currently using an Ambulatory Assistive Device (Walker, Cane, Wheelchair, Crutches, etc.)? No PATIENT GENDER DATA: Male PATIENT RELEVANT IMPLANT DATA REVIEWED: Yes RADIOLOGY DEPARTMENT: General X-ray: Exam(s) Completed: Rib X-Ray: Right PERIPHERAL IV DATA: Not applicable SIGNED BY: RT Julio(R) August 21, 2023 3:09 PM [facility] 08-21-2023 Note HNO ID: [id number] Author: Ness Ochoa APRN.CUSTOM HARVESTER Service: ? Author Type: Nurse Practitioner Type: Progress Notes Filed: 08/21/2023 3:58 PM Note Text: Subjective HPI Nontoxic-appearing male presents urgent care chief complaint right-sided pain. Patient states 5 days ago he was drinking heavily when he fell into a porch railing. States has had rib pain ever since. Denied any OTC medication use for symptom management. Denies any LOC. No head or neck or back pain. No vomiting. No hemoptysis or shortness of breath. Denies any fever body aches chills productive cough chest pain shortness of breath pleuritic pain hemoptysis nausea vomiting abdominal pain change in bowel or bladder habits. Past medical history prescription medication use and allergies reviewed. .Patient presents with: Rib Pain: Right side ran into porch post x 5 days ago PAST MEDICAL HISTORY Diagnosis Date Alcoholism (HCC) PAST SURGICAL HISTORY Procedure Laterality Date NONE ALLERGIES Patient has no known allergies. MEDICATIONS albuterol HFA (PROVENTIL HFA, VENTOLIN HFA) 90 mcg/actuation inhaler Inhale 2 puffs every 4-6 hours as needed for shortness of breath/cough thiamine (VITAMIN B1) 100 mg tablet Take 100 mg by mouth once daily. History reviewed. No pertinent family history. Social History Tobacco Use Smoking status: Every Day Smokeless tobacco: Never Substance Use Topics Alcohol use: Yes Drug use: Never BP 114/76 Pulse 82 Temp 36.8 ?C (98.3 ?F) Resp 18 Wt 62.1 kg (136 lb 12.8 oz) SpO2 98% BMI 20.20 kg/m? Review of Systems Constitutional: Negative for chills, fever and malaise/fatigue. HENT: Negative for congestion, ear discharge, ear pain, sinus pain and sore throat. Eyes: Negative for blurred vision, pain, discharge and redness. Respiratory: Negative for cough, hemoptysis, sputum production, shortness of breath, wheezing and stridor. Cardiovascular: Negative for chest pain. Gastrointestinal: Negative for abdominal pain, diarrhea, nausea and vomiting. Musculoskeletal: Positive for falls. Negative for back pain, myalgias and neck pain. Skin: Negative for itching and rash. Neurological: Negative for dizziness and headaches. Objective Physical Exam Constitutional: General: He is not in acute distress. Appearance: He is not toxic-appearing. HENT: Head: Normocephalic. Nose: Nose normal. Eyes: Pupils: Pupils are equal, round, and reactive to light. Cardiovascular: Rate and Rhythm: Normal rate. Pulmonary: Effort: Pulmonary effort is normal. No respiratory distress. Musculoskeletal: Arms: Cervical back: Normal range of motion. Comments: Pain with palpation to lower ribs. Abrasion noted on upper abdomen. No pain with palpation to abdomen region. No deformities or crepitus noted. Skin: General: Skin is warm and dry. Neurological: General: No focal deficit present. Mental Status: He is alert. ASSESSMENT/PLAN: 1. Rib pain on right side - ICD9: 786.50, ICD10: R07.81 - XR RIBS/CHEST 3V AP RIB/OBLS/CXR RIGHT IMPRESSION: No acute radiographic abnormality. No acute findings noted on x-ray. Treat as contusion. Supportive therapies discussed. Red flags prompt evaluation discussed. Patient will follow up with primary care provider as needed. Patient was instructed to immediately proceed to emergency room for any new, worsening, or symptoms lasting longer than anticipated. The patient's clinical presentation is otherwise unremarkable at this time. Based on exam and clinical finding, the patient is stable for discharge. Plan of care was discussed with patient. Patient verbalizes understanding and agrees to plan of care. This note was generated using DataSift software. It may contain errors in wording, punctuation, or spelling. Ness Ochoa APRN.[facility] 08-21-2023 History of Presen t illness Narrative Images from the original note were not included. Subjective HPI Nontoxic-appearing male presents urgent care chief complaint right-sided pain. Patient states 5 days ago he was drinking heavily when he fell into a porch railing. States has had rib pain ever since. Denied any OTC medication use for symptom management. Denies any LOC. No head or neck or back pain. No vomiting. No hemoptysis or shortness of breath. Denies any fever body aches chills productive cough chest pain shortness of breath pleuritic pain hemoptysis nausea vomiting abdominal pain change in bowel or bladder habits. Past medical history prescription medication use and allergies reviewed. .Patient presents with: Rib Pain: Right side ran into porch post x 5 days ago PAST MEDICAL HISTORY Diagnosis Date Alcoholism (HCC) PAST SURGICAL HISTORY Procedure Laterality Date NONE ALLERGIES Patient has no known allergies. MEDICATIONS albuterol HFA (PROVENTIL HFA, VENTOLIN HFA) 90 mcg/actuation inhaler Inhale 2 puffs every 4-6 hours as needed for shortness of breath/cough thiamine (VITAMIN B1) 100 mg tablet Take 100 mg by mouth once daily. History reviewed. No pertinent family history. Social History Tobacco Use Smoking status: Every Day Smokeless tobacco: Never Substance Use Topics Alcohol use: Yes Drug use: Never BP 114/76 Pulse 82 Temp 36.8 C (98.3 F) Resp 18 Wt 62.1 kg (136 lb 12.8 oz) SpO2 98% BMI 20.20 kg/m Review of Systems Constitutional: Negative for chills, fever and malaise/fatigue. HENT: Negative for congestion, ear discharge, ear pain, sinus pain and sore throat. Eyes: Negative for blurred vision, pain, discharge and redness. Respiratory: Negative for cough, hemoptysis, sputum production, shortness of breath, wheezing and stridor. Cardiovascular: Negative for chest pain. Gastrointestinal: Negative for abdominal pain, diarrhea, nausea and vomiting. Musculoskeletal: Positive for falls. Negative for back pain, myalgias and neck pain. Skin: Negative for itching and rash. Neurological: Negative for dizziness and headaches. Objective Physical Exam Constitutional: General: He is not in acute distress. Appearance: He is not toxic-appearing. HENT: Head: Normocephalic. Nose: Nose normal. Eyes: Pupils: Pupils are equal, round, and reactive to light. Cardiovascular: Rate and Rhythm: Normal rate. Pulmonary: Effort: Pulmonary effort is normal. No respiratory distress. Musculoskeletal: Arms: Cervical back: Normal range of motion. Comments: Pain with palpation to lower ribs. Abrasion noted on upper abdomen. No pain with palpation to abdomen region. No deformities or crepitus noted. Skin: General: Skin is warm and dry. Neurological: General: No focal deficit present. Mental Status: He is alert. ASSESSMENT/PLAN: 1. Rib pain on right side - ICD9: 786.50, ICD10: R07.81 - XR RIBS/CHEST 3V AP RIB/OBLS/CXR RIGHT IMPRESSION: No acute radiographic abnormality. No acute findings noted on x-ray. Treat as contusion. Supportive therapies discussed. Red flags prompt evaluation discussed. Patient will follow up with primary care provider as needed. Patient was instructed to immediately proceed to emergency room for any new, worsening, or symptoms lasting longer than anticipated. The patient's clinical presentation is otherwise unremarkable at this time. Based on exam and clinical finding, the patient is stable for discharge. Plan of care was discussed with patient. Patient verbalizes understanding and agrees to plan of care. This note was generated using DataS[employer] software. It may contain errors in wording, punctuation, or spelling. Ness Ochoa APRN.[employer] documented in this encounter [facility] 01-09-2023 Note HNO ID: [id number] Author: Norah Bojorquez APRN.YARA Service: ? Author Type: Nurse Practitioner Type: Progress Notes Filed: 01/09/2023 1:55 PM Note Text: Subjective HPI Devendra Medina is a 52 year old male who presents with nausea since last night after eating a collins cheeseburger he made at home. Today he vomited once. He denies abdominal pain or fever. No associated URI symptoms. He has not taken any medication today. Review of Systems Constitutional: Negative for chills and fever. HENT: Negative for congestion and sore throat. Respiratory: Negative for cough. Cardiovascular: Negative. Gastrointestinal: Positive for nausea and vomiting. Negative for abdominal pain and diarrhea. Musculoskeletal: Negative for myalgias. Neurological: Negative for headaches. BP 122/68 Pulse 75 Temp 37.1 ?C (98.8 ?F) (Tympanic) Resp 20 Wt 62.2 kg (137 lb 3.2 oz) SpO2 98% BMI 20.26 kg/m? PAST MEDICAL HISTORY Diagnosis Date Alcoholism (HCC) PAST SURGICAL HISTORY Procedure Laterality Date NONE ALLERGIES Patient has no known allergies. MEDICATIONS albuterol HFA (PROVENTIL HFA, VENTOLIN HFA) 90 mcg/actuation inhaler Inhale 2 puffs every 4-6 hours as needed for shortness of breath/cough thiamine (VITAMIN B1) 100 mg tablet Take 100 mg by mouth once daily. No family history on file. Social History Tobacco Use Smoking status: Every Day Smokeless tobacco: Never Substance Use Topics Alcohol use: Never Drug use: Never Objective Physical Exam Vitals and nursing note reviewed. Constitutional: Appearance: Normal appearance. Cardiovascular: Rate and Rhythm: Normal rate and regular rhythm. Heart sounds: Normal heart sounds. Pulmonary: Effort: Pulmonary effort is normal. No respiratory distress. Breath sounds: Normal breath sounds. No wheezing or rales. Abdominal: General: Abdomen is flat. Bowel sounds are normal. There is no distension. Palpations: Abdomen is soft. There is no mass. Tenderness: There is no abdominal tenderness. There is no guarding. Neurological: Mental Status: He is alert. ASSESSMENT/PLAN: 1. Nausea and vomiting, unspecified vomiting type - ICD9: 787.01, ICD10: R11.2 - likely due to viral illness or related to food intake/food borne illness. - clear liquids for next 8 hours, then advance to BRAT diet as tolerated. - Follow-up with your PCP in 3-5 days if symptoms have not improved or sooner if symptoms worsen - Discussed red flags and need for immediate medical evaluation if any occur. - Discussed supportive care treatment with fluids, rest and analgesia. - Discussed expected course of illness Norah Bojorquez APRN.[facility] 09-19-2022 History of Presen t illness Narrative [facility] Epilepsy Center Review of Records Patient: Devendra Medina Address: [address] [place] [address] Impression: Review of records for Devendra Medina, a 51 year old male, being referred by Jourdan Pham MD [[facility]] to Any Epileptologist for further evaluation and treatment. Patient has previously diagnosed tremors. EEG and MRI not available for review or not achieved. Patient has trialed 2 AEDs. VEEG may be indicated for event characterization and diagnostic evaluation to determine best treatment options. As he is having seizures about three times a month and does not have other workup, recommend 2 hour EEG followed by consultation with an epileptologist Summary: Onset: Childhood, restarted again recently Recent Seizure Frequency: 3 times a month Seizure Description(s) Available: Type A: Tremors Duration: 5-10 seconds Current AED(s): None Previous AED(s): Phenytoin Valproic acid PMH: Thoracic spine compression fracture PRIOR EVALUATIONS: EEG (NA): MRI brain wo/w contrast (NA): ABBY Recommendations: - 2 hour EEG followed by visit with an epileptologist - Additional testing to be considered by epilepsy clinicians Signed: Loren Avila APRN.YARA September 19, [address] Cortes for review and recommendations. --------- MD Recommendations (as discussed with Dr. Cortes): - Please proceed with the above plan. documented in this encounter [facility] 05-15-2022 Miscellaneous Notes Images from the original note were not included. documented in this encounter [facility] documented as of this encounter (statuses as of 05/15/2022) [facility]04-05-2021 History of Past illness Narrative* Problem Noted Date Resolved Date Strain of thoracic back region 02/18/2021 0 04/24/2021 documented as of this encounter (statuses as of 09/19/2022) [facility] History of Past illness Narrative* Problem Noted Date Resolved Date Strain of thoracic back region 02/18/2021 0 04/24/2021 documented as of this encounter (statuses as of 09/22/2022) [facility] History of Past illness Narrative* Problem Noted Date Diagnosed Date Resolved Date Strain of thoracic back region 02/18/2021 04/24/2021 documented as of this encounter (statuses as of 08/22/2023) [facility] History of Past illness Narrative* Problem Noted Date Diagnosed Date Resolved Date Strain of thoracic back region 02/18/2021 04/24/2021 documented as of this encounter (statuses as of 10/06/2023) [facility] note* Diagnosis Abnormal involuntary movement- Primary Abnormal involuntary movements documented in this encounter [facility] note* Diagnosis Rib pain on right side- Primary Chest pain, unspecified documented in this encounter [facility] note* Diagnosis Injury of back, initial encounter- Primary documented in this encounter [facility] for referral (narrative)* Outpatient Procedure (Routine) - Pending Review Specialty Diagnoses / Procedures Referred By Contac t Referred To Contact [facility] Diagnoses Abnormal involuntary movement Procedures EPIL EEG LONG EEG EXTENDED MONITORING 61-119 MINUTES ELECTROENCEPHALOGRAM REC COMA/SLEEP ONLY Loren Avila APRN.CNP [address] [id number] [facility] [place] [address] [id number] Referral ID Status Reason Start Date Expiration Date Visits Requested Visits Authorized [id number] Pending Review Auto-Generat ed Referral 09/19/2022 09/19/2023 1 1 [facility] for referral (narrative)* Diagnostic Procedure Only (Urgent) - Closed Specialty Diagnoses / Procedures Referred By Contac t Referred To Contact XR IMAGING Diagnoses Rib pain on right side Procedures XR RIBS/CHEST 3V AP RIB/OBLS/CXR RIGHT RADEX RIBS UNI W/POSTEROANT CH MINIMUM 3 VIEWS Ness Ochoa APRN.[employer] [address] [place] [address] [place] [address] Referral ID Status Reason Start Date Expiration Date V isits Requested Visits Authorized [id number] Closed Auto-Generate d Referral 08/21/2023 09/19/2024 1 1 [facility] for referral (narrative)* Diagnostic Procedure Only (Urgent) - Closed Specialty Diagnoses / Procedures Referred By Contac t Referred To Contact XR IMAGING Diagnoses Injury of back, initial encounter Procedures XR THORACIC GENERAL 3V AP/LAT/SWIMMERS RADEX SPINE THORACIC 3 VIEWS Justa Pino PA-C [address] [place] [address] [place] [address] Referral ID Status Reason Start Date Expiration Date V isits Requested Visits Authorized [id number] Closed Auto-Generate d Referral 10/05/2023 11/03/2024 1 1 * Diagnostic Procedure Only (Urgent) - Closed Specialty Diagnoses / Procedures Referred By Contac t Referred To Contact XR IMAGING Diagnoses Injury of back, initial encounter Procedures XR LUMBAR GENERAL 3V AP/LAT/L5-S1 RADEX SPINE LUMBOSACRAL 2/3 VIEWS Justa Pino PA-C [address] [place] [address] [place] [address] Referral ID Status Reason Start Date Expiration Date V isits Requested Visits Authorized [id number] Closed Auto-Generate d Referral 10/05/2023 11/03/2024 1 1 [facility] Summary Purpose Family History No Family History Records Found Advance Directives No Advanced Directives Records Found Additional Source Comments Source Comments (unrecognize d section and content) In the event this informatio n is protected by the Federal Confidentiality of Alcohol and Drug Abuse Patient Records regulations: The Federal rules restrict any use of the information to criminally investigate or prosecute any alcohol or drug abuse patient.[facility] the event this information is protected by the Federal Confidentiality of Alcohol and Drug Abuse Patient Records regulations: The Federal rules restrict any use of the information to criminally investigate or prosecute any alcohol or drug abuse patient.[facility] the event this information is protected by the Federal Confidentiality of Alcohol and Drug Abuse Patient Records regulations: The Federal rules restrict any use of the information to criminally investigate or prosecute any alcohol or drug abuse patient.[facility] the event this information is protected by the Federal Confidentiality of Alcohol and Drug Abuse Patient Records regulations: The Federal rules restrict any use of the information to criminally investigate or prosecute any alcohol or drug abuse patient.[facility] the event this information is protected by the Federal Confidentiality of Alcohol and Drug Abuse Patient Records regulations: The Federal rules restrict any use of the information to criminally investigate or prosecute any alcohol or drug abuse patient.[facility] Reason for Visit (unrecogniz ed section and content) Reason Comments Future Appointment Reason Comments Rib Pain Right side ran into porch post x 5 days ago Reason Comments Back Pain mid-lower back pain x 4 days, fell down stairs Care Teams (unrecognized sec tion and content) Warehouser Relationship Specialty Start Date End Date Ligia Perez CNP [address] [facility] [address] PCP - General Family Medicine 05/08/22 Ligia Perez CNP [address] [facility] [address] Referring Family Medicine 05/08/22 Jourdan Pham MD [address] [place] [address] Family Medicine 09/14/22 Warehouser Relationship Specialty Start Date End Date Ligia Perez CNP [address] [place] [address] PCP - General Family Medicine 05/08/22 Ligia Perez CNP [address] [facility] [address] Referring Family Medicine 05/08/22 Jourdan Pham MD [address] [place] [address] Family Medicine 09/14/22 Warehouser Relationship Specialty Start Date End Date Ligia Perez CNP [address] [facility] [address] PCP - General Family Medicine 05/08/22 Ligia Perez CNP [address] [facility] [address] Referring Family Medicine 05/08/22 Jourdan Pham(Historical)MD [address] [facility] [address] Family Medicine 09/14/22 Warehouser Relationship Specialty Start Date End Date Felicia Lutz NP [address] [place] [address] PCP - General Family Medicine 10/05/23 Ligia Perez CNP [address] [place] [address] Referring Family Medicine 05/08/22 Jourdan Pham(Historical)MD [address] [id number] Family Medicine 09/14/22 (unrecognized sect ion and content) No Status Records Found INFORMATION SOURCE (unrecogn ized section and content) FOR RECORDS PERTAINING TO PATIENTS WHO ARE OR HAVE BEEN ENROLLED IN A CHEMICAL DEPENDENCY/SUBSTANCEABUSE PROGRAM, SOME INFORMATION MAY BE OMITTED. This clinical summary was aggregated from multiple sources. Caution should be exercised in using it in the provision of clinical care. This summary normalizes information from multiple sources, and as a consequence, information in this document may materially change the coding, format and clinical context of patient data. In addition, data may be omitted in some cases. CLINICAL DECISIONS SHOULD BE BASED ON THE PRIMARY CLINICAL RECORDS. [employer] [facility]. provides no warranty or guarantee of the accuracy or completeness of information in this document.
[2023-12-01 15:51] LABS: Hematocrit 39.6 % (40-54); Hemoglobin 13.5 g/dL (13.0-16.5); Mean Corp Hgb Conc 34.1 g/dL (32-36); Mean Corpuscular Hgb 33.3 pg (27.0-32.0); Mean Corpuscular Volume 97.8 fL (80-94); Mean Platelet Vol. 8.9 fl (6.2-12.0); Platelet Count 351 K/mm3 (150-450); RBC Distribution Width SD 43.2 fl (35.1-43.9); Red Blood Count 4.05 M/mm3 (4.6-6.2); White Blood Count 9.3 K/mm3 (4.4-11.0)
[2023-12-01 16:22] LABS: AST(SGOT) 31 U/L (15-37); Alanine Aminotransfer ALT/SGPT 29 U/L (16-61); Albumin, Serum 3.8 g/dL (3.2-5.0); Alkaline Phosphatase 110 U/L (45-117); Anion Gap 6 (5-15); BUN 21 mg/dL (7-18); BUN/Creat Ratio 20.4 RATIO (10-20); Calcium,Total 8.9 mg/dL (8.5-10.1); Chloride 105 mmol/L (98-107); Creatinine, Serum 1.03 mg/dL (0.70-1.30); EST Glomerular Filtration Rate 81 mL/min (>60); Est Glom Filt Rate - Afr Amer 98 mL/min (>60); Glucose 133 mg/dL (74-106); Potassium 4.4 mmol/L (3.5-5.1); Protein, Total 7.8 g/dL (6.4-8.2); Sodium Level 137 mmol/L (136-145)
[2023-12-01 16:44] LABS: Carbamazepine (Tegretol) 7.1 ug/mL (4.0-12.0)
== END | disposition home or self-care (01) ==
LOC: MTLAB 12:43
PROVIDERS: Referring Provider Psychiatry & Neurology Neurology; Visit Provider Psychiatry & Neurology Neurology
DX: G40.909 Epilepsy, unspecified, not intractable, without status epilepticus (principal)
CPT/HCPCS: 36415; 80053; 80156; 82140; 85027

== ENCOUNTER → 2024-02-29 | Outpatient (CLI) | payer MEDICAID, SELFPAY | END | disposition home or self-care (01) | LOC: MTLAB 16:03 | PROVIDERS: PCP Nurse Practitioner Family; Referring Provider Psychiatry & Neurology Neurology; Visit Provider Psychiatry & Neurology Neurology | DX: Z00.00 Encounter for general adult medical examination without abnormal findings (principal) ==

== ENCOUNTER → 2024-04-12 | Outpatient (CLI) | payer MEDICAID, SELFPAY ==
--- NOTE | 2024-04-13 17:15 | STRESSREP ---
Stress Test Report Date: 04/12/2024 Procedure: Exercise tolerance test Indications: Dyspnea Consent: Per the patient Procedure: The patient exercised on a Thai protocol for 9 minutes achieving a peak heart rate of 153 bpm (91% predicted maximal heart rate) with a peak blood pressure 162/70 mmHg and a peak MET capacity of approximately 10.1 MET's. The baseline ECG demonstrated normal sinus rhythm. The peak exercise ECG demonstrated no significant ischemic changes. [There were no cardiac dysrhythmias pretest, during exercise, or recovery]. The functional capacity was considered normal for age. The patient had no complaint of chest discomfort during exercise or recovery. The examination was discontinued secondary to dyspnea. Impression: 1. Technically adequate (percent predicted maximal heart rate greater than 85%) exercise tolerance test 2. Stress test is negative for exercise-induced chest pain. 3. Stress test test is negative for exercise-induced EKG changes of ischemia. 4. Functional capacity is normal for age This note was generated with [employer] software. It may contain incorrect words, spelling, and punctuation that were not noted in checking the note before signing.
== END | disposition home or self-care (01) ==
LOC: CVS 12:15
PROVIDERS: PCP Nurse Practitioner Family; Referring Provider Nurse Practitioner Family; Visit Provider Nurse Practitioner Family
DX: R06.09 Other forms of dyspnea (principal)
CPT/HCPCS: 93017

== ENCOUNTER → 2024-07-26 | Outpatient (CLI) | payer MEDICAID, SELFPAY ==
[2024-07-26 17:11] LABS: Absolute Lymphocyte Count 1.37 X10^3/uL (0.83-4.51); Absolute Neutrophil Count 4.3 X10^3/uL (2.0-7.7); Basophil# 0.09 X10^3/uL; Basophil% 1.3 % (0-1); Eosinophil# 0.42 X10^3/uL; Eosinophils% 6.1 % (0-5); Hematocrit 35.8 % (40-54); Hemoglobin 12.1 g/dL (13.0-16.5); Lymphocyte # 1.37 X10^3/ul (0.83-4.51); Mean Corp Hgb Conc 33.8 g/dL (32-36); Mean Corpuscular Hgb 33.1 pg (27.0-32.0); Mean Corpuscular Volume 97.8 fL (80-94); Mean Platelet Vol. 8.3 fl (6.2-12.0); Monocyte# 0.65 X10^3/uL; Monocyte% 9.5 % (0-10); NRBC Flagged by Analyzer 0 % (0-5); Neutrophil # 4.31 X10^3/uL (2.7-7.7); Platelet Count 395 K/mm3 (150-450); RBC Distribution Width CV 12.3 % (11.6-14.6); RBC Distribution Width SD 44.5 fl (35.1-43.9); Red Blood Count 3.66 M/mm3 (4.6-6.2); White Blood Count 6.9 K/mm3 (4.4-11.0)
[2024-07-26 18:03] LABS: ALB/GLOB Ratio 0.9 RATIO (0.9-2.4); AST(SGOT) 21 U/L (15-37); Alanine Aminotransfer ALT/SGPT 21 U/L (16-61); Albumin, Serum 3.5 g/dL (3.2-5.0); Alkaline Phosphatase 83 U/L (45-117); Anion Gap 6 (5-15); BUN 10 mg/dL (7-18); BUN/Creat Ratio 10.4 RATIO (10-20); Calcium,Total 8.8 mg/dL (8.5-10.1); Chloride 105 mmol/L (98-107); Cholesterol 224 mg/dL (200); Creatinine, Serum 0.96 mg/dL (0.70-1.30); EST Glomerular Filtration Rate 87 mL/min (>60); Est Glom Filt Rate - Afr Amer 105 mL/min (>60); Globulin 3.7 g/dL (2.2-4.2); Glucose 151 mg/dL (74-106); High Density Lipoprotein 114 mg/dL; Phosphorus 1.9 mg/dL (2.5-4.9); Potassium 3.3 mmol/L (3.5-5.1); Protein, Total 7.2 g/dL (6.4-8.2); Sodium Level 137 mmol/L (136-145); Triglycerides 64 mg/dL; Very Low Density Lipoprotein 13 mg/dL (5-40)
== END | disposition home or self-care (01) ==
PROVIDERS: PCP Nurse Practitioner Family; Visit Provider Nurse Practitioner Family
DX: R06.09 Other forms of dyspnea (principal); F10.20 Alcohol dependence, uncomplicated; Z13.220 Encounter for screening for lipoid disorders
CPT/HCPCS: 36415; 80053; 80061; 82746; 83735; 84100; 84443; 85025

== ENCOUNTER → 2024-08-12 | Outpatient (CLI) | payer MEDICAID, SELFPAY | END | disposition home or self-care (01) | LOC: PSN 08:14 | PROVIDERS: PCP Nurse Practitioner Family; Referring Provider Nurse Practitioner Family; Visit Provider Nurse Practitioner Family | DX: J44.9 Chronic obstructive pulmonary disease, unspecified (principal) | CPT/HCPCS: 94060; 94726; 94729 ==

== ENCOUNTER 2024-09-15 15:00 | Outpatient (RCR) | payer MEDICAID, SELFPAY ==
--- NOTE | 2024-08-17 15:53 | HP.PTEVAL ---
Patient's Visit Information Visit Information Visit Information: LOVE MEDINA is a 53 year old M referred to Physical Therapy by Nadine Lutz Monica, [employer]ER-C with a diagnosis of LBP. Date of Evaluation: 08/17/24 Physical Therapist: Jourdan Chaudhari, OLIMPIAT, OCS, CSCS Visit Plan Frequency: 2x /Week Duration: 4-6 Weeks Plan: 2x/week for 4 weeks for 1. ensure extension ROM at home given today 2. teach stretch quad and HS to HEP 3. Teach core, postural and hip, LE strength for home and gym and get to I with list. Subjective Subjective: H/o LBP and has had therapy before which was helpful, not continued any ex. LBP brings him here as it is worse at times. Sitting too long in poor posture in a culprit. Pain is in LB and gets up to 5/10 with sitting too long. Walking can increase it sometimes. Wears steel toe shoes to work out legs. Valve Grinder shoes has helped. Activities are pretty normal as he can position himself. Not employed Sleeping is OK Spends day: running to store. Can get through without pain sometimes. Spends day watching TV and stereo. Sits in edge of bed. No leg symptoms. Pain LBP: Pain Intensity (Out of 10): 0 Pain Intensity Range: 0 and 5 Objective Objective: Wallks hunched over sith stiff back but I. Trasnfers chair and bed I. LB AROM ext max limited and painful centrally, flexion and SB are full and painfree. quads and HS max tight with -30 90/90 test. reflexes 2/3 patell and achilles Sensation LE WNL to gross light touch. strength hip ext and abd 3/5, flexion 3+ with contralateral instability. knee flexion and ext 4/5, ankles 4/5 Balance/Special Test Scores Oswestry Low Back Score: 24 Goals Goal 1:: I appropriate ROM, stretch adn strengthen via HEP or gym Goal Time Frame: 4-6 Weeks Goal 2:: LBP 90% better and 1/10 at worst Goal Time Frame: 4-6 Weeks Rehabilitation Potential Physical Therapy Diagnosis: LBP and loss of motion Rehabilitation Potential: Good Anticipated Interventions Patient/Client Instruction: Educate patient on: Condition For the Purpose of:: To decrease pain, To increase ROM, To improve nutrient delivery to tissue and To increase tolerance to activity/condition/position Therapeutic Exercise to Include: Strength training, Balance training, Postural training, Flexibilty training, Passive ROM and Active ROM For the Purpose of:: To decrease pain, To increase ROM, To improve nutrient delivery to tissue, To increase tolerance to activity/condition/position and To improve gait and locomotor functions Text: Thank you for the opportunity to evaluate your patient. For Medicare and Medicare HMO plans, please review the plan of care and approve it. It will need to be FAXED BACK to us at [phone] for Medicare purposes. For Medicare only, by signing this I certify the plan of care. Please let me know if there are questions or concerns regarding this plan of care. Physician Signature: Date:
--- NOTE | 2024-10-25 11:56 | HP.PT.NRP ---
Patient Information Patient Information: LOVE MEDINA was seen in my office for initial evaluation on 08/17/24. The following Plan of Care was established for this patient: POC Established Initial Frequency: 2x /Week Initial Duration: 4-6 Weeks Anticipated Interventions Patient/Client Instruction: Educate patient on: Condition For the Purpose of:: To decrease pain, To increase ROM, To improve nutrient delivery to tissue and To increase tolerance to activity/condition/position Therapeutic Exercise to Include: Strength training, Balance training, Postural training, Flexibilty training, Passive ROM and Active ROM For the Purpose of:: To decrease pain, To increase ROM, To improve nutrient delivery to tissue, To increase tolerance to activity/condition/position and To improve gait and locomotor functions Last Seen Last Seen: This patient was last seen in our office 09/15/24. Pertinent comments regarding their Physical therapy will appear below: Pt seen 4 visits of POC and was doing well at his last attended visit. However, he no showed for the next visit and has not scheduled any further. At this point, it has been over 5 weeks and I will discontinue from my care At this point I will be discontinuing this patient from physical therapy. I would be happy to see this patient again in the future if found appropriate by the physician. Thank you! Jourdan Chaudhari, DPT, OCS, CSCS Balance/Gait/Functional tests Balance/Special Test Scores Oswestry Low Back Score: 24
== END 2024-09-15 19:00 | disposition home or self-care (01) ==
LOC: PT 15:00
PROVIDERS: PCP Nurse Practitioner Family; Referring Provider Nurse Practitioner Family; Visit Provider Nurse Practitioner Family
DX: M54.50 Low back pain, unspecified (principal)
CPT/HCPCS: 97110; 97161

== ENCOUNTER → 2024-10-17 | Outpatient (CLI) | payer MEDICAID, SELFPAY ==
[2024-10-17 10:30] LABS: Hematocrit 37.8 % (40-54); Hemoglobin 12.8 g/dL (13.0-16.5); Mean Corp Hgb Conc 33.9 g/dL (32-36); Mean Corpuscular Hgb 33.7 pg (27.0-32.0); Mean Corpuscular Volume 99.5 fL (80-94); Mean Platelet Vol. 8.4 fl (6.2-12.0); Platelet Count 342 K/mm3 (150-450); RBC Distribution Width CV 12.9 % (11.6-14.6); White Blood Count 7.5 K/mm3 (4.4-11.0)
[2024-10-17 11:03] LABS: Carbamazepine (Tegretol) 9.2 ug/mL (4.0-12.0)
[2024-10-17 11:12] LABS: ALB/GLOB Ratio 0.9 RATIO (0.9-2.4); AST(SGOT) 33 U/L (15-37); Alanine Aminotransfer ALT/SGPT 30 U/L (16-61); Albumin, Serum 3.5 g/dL (3.2-5.0); Alkaline Phosphatase 82 U/L (45-117); Anion Gap 6 (5-15); BUN 17 mg/dL (7-18); BUN/Creat Ratio 17.2 RATIO (10-20); Calcium,Total 8.5 mg/dL (8.5-10.1); Chloride 105 mmol/L (98-107); Creatinine, Serum 0.99 mg/dL (0.70-1.30); EST Glomerular Filtration Rate 84 mL/min (>60); Est Glom Filt Rate - Afr Amer 102 mL/min (>60); Ferritin 588 ng/mL (26-388); Glucose 90 mg/dL (74-106); Iron 111 ug/dL (65-175); Magnesium 2.4 mg/dL (1.6-2.6); Potassium 4.1 mmol/L (3.5-5.1); Protein, Total 7.5 g/dL (6.4-8.2); Sodium Level 138 mmol/L (136-145)
[2024-10-17 13:47] LABS: Hemoglobin A1c 5.2 % (3.8-5.6)
== END | disposition home or self-care (01) ==
PROVIDERS: PCP Nurse Practitioner Family; Referring Provider Psychiatry & Neurology Neurology; Visit Provider Psychiatry & Neurology Neurology
DX: G40.909 Epilepsy, unspecified, not intractable, without status epilepticus (principal); D64.9 Anemia, unspecified; Z86.2 Personal history of diseases of the blood and blood-forming organs and certain disorders involving the immune mechanism; R73.9 Hyperglycemia, unspecified
CPT/HCPCS: 36415; 80053; 80156; 82140; 82728; 83036; 83540; 83735; 85027

== ENCOUNTER 2025-06-23 15:35 | Emergency (ER) | payer MEDICAID, SELFPAY ==
[2025-06-23 15:38] VITALS: TEMP -17.7; TEMP 0
== END 2025-06-23 15:40 | disposition left against medical advice (07) ==
LOC: ED 15:44
PROVIDERS: PCP Nurse Practitioner Family
DX: Z53.21 Procedure and treatment not carried out due to patient leaving prior to being seen by health care provider (principal)

== ENCOUNTER → 2025-07-06 | Outpatient (CLI) | payer MEDICAID, SELFPAY ==
[2025-07-06 15:14] LABS: Hematocrit 34.9 % (40-54); Hemoglobin 12.0 g/dL (13.0-16.5); Mean Corp Hgb Conc 34.4 g/dL (32-36); Mean Corpuscular Volume 98.3 fL (80-94); Mean Platelet Vol. 8.6 fl (6.2-12.0); Platelet Count 389 K/mm3 (150-450); RBC Distribution Width CV 12.0 % (11.6-14.6); RBC Distribution Width SD 43.8 fl (35.1-43.9); Red Blood Count 3.55 M/mm3 (4.6-6.2); White Blood Count 6.3 K/mm3 (4.4-11.0)
[2025-07-06 15:28] LABS: AST(SGOT) 24 U/L (<=37); Alanine Aminotransfer ALT/SGPT 17 U/L (<=46); Albumin, Serum 4.1 g/dL (3.5-5.0); Alkaline Phosphatase 78 U/L (40-129); Ammonia 47.1 umol/L (16-60); Anion Gap 13 (5-15); BUN 7 mg/dL (4-19); BUN/Creat Ratio 8.1 RATIO (10-20); Calcium,Total 8.8 mg/dL (7.6-11.0); Carbamazepine (Tegretol) 7.1 ug/mL (4.0-12.0); Carbon Dioxide 22.6 mmol/L (21.0-32.0); Chloride 104 mmol/L (98-108); Globulin 2.6 g/dL (2.2-4.2); Glucose 91 mg/dL (70-99); Potassium 3.3 mmol/L (3.3-5.1)
== END | disposition home or self-care (01) ==
LOC: MTLAB 13:37
PROVIDERS: PCP Nurse Practitioner Family; Referring Provider Psychiatry & Neurology Neurology; Visit Provider Psychiatry & Neurology Neurology
DX: G40.909 Epilepsy, unspecified, not intractable, without status epilepticus (principal)
CPT/HCPCS: 36415; 80053; 80156; 82140; 85027

== ENCOUNTER → 2025-08-15 | Outpatient (CLI) | payer MEDICAID, SELFPAY ==
[2025-08-15 15:44] LABS: Immature Reticulocyte Fraction 7.80 % (3.00-15.90); Platelet Count 351 K/mm3 (150-450); Reticulocyte Count 1.08 % (0.5-1.5)
[2025-08-15 16:32] LABS: Ferritin 516 ng/mL (37-417); Iron 250 ug/dL (65-175); Magnesium 2.0 mg/dL (1.5-2.2); Vitamin B12 417 pg/mL (180-914)
[2025-08-21 20:08] LABS: Folate, Hemolysate Test 361.0 ng/mL (Not Estab.); Folate, RBC (Hct) Test 38.5 % (37.5-51.0); Folates, RBC Test 938 ng/mL (>498); VITAMIN B6 13.9 ug/L (3.4-65.2); Vitamin B1, Thiamine 131.9 nmol/L (66.5-200.0)
== END | disposition home or self-care (01) ==
LOC: MTLAB 11:34
PROVIDERS: PCP Nurse Practitioner Family
DX: D64.9 Anemia, unspecified (principal); F10.20 Alcohol dependence, uncomplicated
CPT/HCPCS: 36415; 82607; 82728; 82747; 83540; 83735; 84207; 84425; 85014; 85045